=== PATIENT | female | born 1970 ===

== ENCOUNTER 2019-02-13 18:57 | Emergency (ER) | payer BC ==
[2019-02-13 19:22] VITALS: TEMP 98.8; BMI 32.1
--- NOTE | 2019-02-13 19:46 | PDOC ---
Documentation entered by Jordan Huynh SCRIBE, acting as scribe for Romeo Olvera MD. Romeo Olvera MD: This documentation has been prepared by the Amina brunson Xhesika, SCRIBE, under my direction and personally reviewed by me in its entirety. I confirm that the documentation accurately reflects all work, treatment, procedures, and medical decision making performed by me. History of Present Illness - General Chief Complaint: Chest Pain Stated Complaint: CHEST PAIN X 2 MONTHS History Source: Patient Exam Limitations: No Limitations - History of Present Illness Initial Comments: 02/13/19 19:58 The patient is a 48 year old female, with a significant past medical history of fatty liver, gestational diabetes, and chronic back pain who presents to the emergency department with 2 months of chest pain. The patient states she has been endorsing intermittent chest pain for past 2 months, however, the chest pain has been constant the last 2 weeks and is associated with SOB. The patient describes the chest pain as pressure that radiates down her left arm. Patient states, she also endorses left leg and left calf pain. The patient states she has been endorsing blurry vision, headache, chills, and lower extremity edema secondary to her symptoms. The patient states she came back from the [place] today but while she was there, she received a muscle relaxer shot for similar symptoms. Patient states she went to [facility] for a checkup and was told to come to the ED for further evaluations and EKG. Patient states she has a strong paternal family history of PE, heart disease and diabetes. PAST MEDICAL HISTORY: no significant history PAST SURGICAL HISTORY: no significant history FAMILY HISTORY: no pertinent history SOCIAL HISTORY: Pt lives with family and is employed. MEDICATIONS: reviewed ALLERGIES: As per nursing notes Assessment and plan: This is a 48-year-old female who comes in complaining of 2 months now of nearly constant chest pain associated with some shortness of breath. Patient recently traveled to the [place] and that is when it worsened. The patient got back yesterday from the [place] and came to ED. Patient's history is significant for a family history of coronary artery disease as well as pulmonary embolisms. Workup initiated including CBC, comp, UA, CT angios of the chest to rule out PE and bilateral Dopplers of the legs. 02/13/19 20:06 Patient's EKG showed normal sinus rhythm at a rate of 88, normal intervals no acute ST-T wave changes. Ultrasound Doppler of the legs bilateral was negative CTA of the chest showed no acute inter thoracic pathology no evidence of pulmonary embolism Patient's heart score is 2 with a negative troponin Patient discharged and told to follow-up with her primary care doctor for further evaluation of her chest discomfort. Patient told to take some anti- inflammatories as well. Past History - Past Medical History Allergies/Adverse Reactions: Allergies Allergy/AdvReac Type Severity Reaction Status Date / Time No Known Allergies Allergy Verified 02/13/19 19:06 Home Medications: Ambulatory Orders NK [No Known Home Medication] 02/13/19 Review of Systems - Review of Systems Able to Perform ROS?: Yes Comments:: 02/13/19 19:59 General: (+) chills. No fevers. no weakness, no weight loss HEENT: (+) blurry vision. (+) headache. No sore throat,. No ear pain CardioVascular: (+) chest pain or shortness of breath Respiratory:No cough, or wheezing. Gastrointestinal: no nausea, vomiting, diarrhea or constipation, No rectal bleeding Genitourinary: No dysuria, hematuria, or frequency Musculoskeletal: (+) lower extremity edema. No joint or muscle pain. Neurologic: (+) headache. No vertigo, dizziness or loss of consciousness Psychiatric: nor depression Skin: No rashes or easy bruising Endocrine: no increased thirst or abnormal weight change Allergic: no skin or latex allergy All other systems reviewed and normal *Physical Exam - Vital Signs Last Vital Signs Temp Pulse Resp BP Pulse Ox 98.8 F 88 16 100/53 L 96 02/13/19 19:06 02/13/19 20:59 02/13/19 20:59 02/13/19 20:59 02/13/19 20:59 - Physical Exam Comments: 02/13/19 20:00 General: Well-nourished well-developed individual, no acute distress HEENT: Throat: Normal, tonsils normal, no erythema or exudate Neck: Supple, no meningeal signs, no lymphadenopathy Eyes::Pupils equal reactive and round, extraocular motion intact Chest: Nontender to palpation Cardiac: S1-S2 normal, regular rate and rhythm, no murmurs rubs or gallops Respiratory: Lungs clear to auscultation bilateral Abdomen: (+) mild tenderness of R sided abdomen and suprapubic region. Soft, nondistended, normal bowel sounds, nontender to palpation diffusely. No masses. No guarding. Extremities: Warm, dry, no cyanosis, clubbing, or edema Skin: No rashes Neuro: Alert and oriented x3, nonfocal exam, grossly intact, normal gait Psych: Normal mood and affect Heart Score/ECG Review - History History: Slightly suspicious - Electrocardiogram EKG: Normal - Age Age: 45-65 - Risk Factors Risk Factors Heart Score: Yes Positive family hx of cardiac disease Based on the list above the patient has:: 1-2 risk factors - Troponin Troponin: </= normal limit - Score Heart Score - Total: 2 ED Treatment Course - LABORATORY CBC & Chemistry Diagram: 02/13/19 19:55 02/13/19 19:55 - ADDITIONAL ORDERS Additional order review: Laboratory Results 02/13/19 02/13/19 02/13/19 19:55 19:55 19:55 Sodium 143 Potassium 3.6 Chloride 107 Carbon Dioxide 26 Anion Gap 10 BUN 17 Creatinine 0.7 Est GFR (CKD-EPI)AfAm 118.74 Est GFR (CKD-EPI)NonAf 102.45 Random Glucose 111 H Calcium 8.9 Total Bilirubin 0.6 AST 37 ALT 34 Alkaline Phosphatase 63 Creatine Kinase 145 Troponin I < 0.03 Total Protein 6.5 Albumin 3.7 Urine Color Urine Appearance Urine pH Urine Protein Urine Glucose (UA) Urine Ketones Urine Blood Urine Nitrite Urine Bilirubin Urine Urobilinogen Ur Leukocyte Esterase 02/13/19 19:45 Sodium Potassium Chloride Carbon Dioxide Anion Gap BUN Creatinine Est GFR (CKD-EPI)AfAm Est GFR (CKD-EPI)NonAf Random Glucose Calcium Total Bilirubin AST ALT Alkaline Phosphatase Creatine Kinase Troponin I Total Protein Albumin Urine Color Yellow Urine Appearance Clear Urine pH 5.0 Urine Protein Negative Urine Glucose (UA) Negative Urine Ketones Negative Urine Blood Negative Urine Nitrite Negative Urine Bilirubin Negative Urine Urobilinogen 0.2 Ur Leukocyte Esterase Negative 02/13/19 19:55 RBC 4.24 MCV 89.8 MCHC 33.3 RDW 12.2 MPV 9.1 Neutrophils % 61.1 Lymphocytes % 29.4 Monocytes % 6.5 Eosinophils % 2.4 Basophils % 0.6 - RADIOLOGY Radiology Studies Ordered: Category Date Time Status CHEST CTA [CT] Stat CT Scan 02/13/19 19:50 Completed DUPLEX VASCUL US-2LEGS [US] Stat Ultrasound 02/13/19 20:06 Completed *DC/Admit/Observation/Transfer Diagnosis at time of Disposition: Chest pain, atypical - Discharge Dispostion Disposition: HOME Condition at time of disposition: Good Decision to Admit order: No - Referrals Referrals: Doctors [Provider Group] - Patient Instructions Printed Discharge Instructions: DI for Atypical Chest Pain Additional Instructions: For the discomfort take Tylenol or Motrin as directed on the bottle. Is important that you follow-up with a professor of environmental studies. In addition to the professor of environmental studies you should also follow-up with your primary care doctor.. Return to the emergency department immediately with ANY new, persistent or worsening symptoms. Continue any medications as previously prescribed by your physician. You should follow up with your primary doctor as soon as possible regarding today's emergency department visit. . Please make sure your doctor reviews the results of your emergency evaluation. Thank you for coming to the Emergency Department today for your care. It was a pleasure to see you today. Please note that your evaluation is INCOMPLETE until you follow-up with your doctor. - Post Discharge Activity
[2019-02-13 20:17] LABS: BASO % 0.6 % (0-2.0); EOS % 2.4 % (0-4.5); HEMATOCRIT 38.1 % (32.4-45.2); HEMOGLOBIN 12.7 GM/dl (10.7-15.3); LYMPH % 29.4 % (8-40); MCH 29.9 pg (25.7-33.7); MCHC 33.3 g/dl (32.0-36.0); MEAN CELL VOLUME 89.8 fl (80-96); MEAN PLT VOLUME 9.1 fl (7.5-11.1); MONO % 6.5 % (3.8-10.2); NEUT % 61.1 % (42.8-82.8); PLATELET COUNT 270 K/MM3 (134-434); RBC 4.24 M/mm3 (3.60-5.2); RDW 12.2 % (11.6-15.6); WHITE BLOOD COUNT 7.6 K/mm3 (4.0-10.8)
[2019-02-13 20:22] LABS: ALBUMIN 3.7 g/dl (3.4-5.0); BILIRUBIN,TOTAL 0.6 mg/dl (0.2-1); CALCIUM 8.9 mg/dl (8.5-10); CREATININE 0.7 mg/dl (0.55-1.3); POTASSIUM 3.6 mmol/L (3.5-5.1); TOT PROT 6.5 g/dl (6.4-8.2)
[2019-02-13 21:04] VITALS: BP 100/53; PULSE 88
--- NOTE | 2019-02-14 10:51 | EKG ---
Test Reason : Blood Pressure : / mmHG Vent. Rate : 088 BPM Atrial Rate : 088 BPM P-R Int : 150 ms QRS Dur : 082 ms QT Int : 372 ms P-R-T Axes : 057 000 033 degrees QTc Int : 450 ms NORMAL SINUS RHYTHM NORMAL ECG NO PREVIOUS ECGS AVAILABLE Confirmed by ALICIA LAURA MD ([id number]) on 02/14/2019 10:51:04 AM Referred By: MD BOWLING Confirmed By:ALICIA LAURA MD
== END 2019-02-13 22:23 | disposition home or self-care (01) ==
LOC: FER 18:57
DX: R07.89 Other chest pain (principal); K76.0 Fatty (change of) liver, not elsewhere classified; G89.29 Other chronic pain; O24.419 Gestational diabetes mellitus in pregnancy, unspecified control
CPT/HCPCS: 36415; 71275-TC; 80053; 81003; 82550; 84484; 85025; 93005; 93970-TC; 99284-25